=== PATIENT | male | born 1935 | race Caucasian/White ===

== ENCOUNTER 2018-01-17 11:24 | Inpatient (IN) | payer MEDICARE ==
--- NOTE | 2018-01-17 12:02 | ED ---
Complex/Multi-Sys Presentation - HPI Summary HPI Summary: An 82 y/o M presents to ED with c/o RLE pain ongoing for a few weeks and not improving. Pt has had hip replacements on both sides many years ago, and his orthopedist from [place] saw him in the past 1-2 years and told him his hips are fine, the pain is coming from his back. He is not having urinary or bowel incontinence with this episode of pain. He can ambulate with a walker. He lives alone. Alleviating factor: position. Pt has additional complaints of chest congestion for the past month with productive cough. He denies fever, chills. - History Of Current Complaint Chief Complaint: EDGeneral Time Seen by Provider: 01/17/18 11:47 Hx Obtained From: Patient, Family/[employer] - son - Orlin, Medical Records Onset/Duration: Lasting Weeks, Still Present Timing: Constant Severity Currently: Moderate Severity Initially: Moderate Alleviating Factor(s): Position Associated Signs And Symptoms: Positive: Cough, Other - pos: chest congestion; neg: urinary and bowel incontinence; chills. Negative: Fever - Allergies/Home Medications Allergies/Adverse Reactions: Allergies Allergy/AdvReac Type Severity Reaction Status Date / Time erythromycin base Allergy Anaphylatic Verified 01/17/18 11:35 Shock Penicillins Allergy Anaphylatic Verified 01/17/18 11:35 Shock scallops Allergy Anaphylatic Verified 01/17/18 11:35 Shock Home Medications: Home Medications Acetaminophen [Tylenol Extra Strength] 1,000 mg PO Q6H 01/17/18 [History Confirmed 01/17/18] Aspirin 81 mg CHEW TAB* [Aspirin Low Dose TAB*] 81 mg PO DAILY 01/17/18 [ History Confirmed 01/17/18] Carvedilol TAB* [Coreg TAB*] 12.5 mg PO BID 01/17/18 [History Confirmed 01/17/18 ] Lisinopril 40 mg PO DAILY 01/17/18 [History Confirmed 01/17/18] Simvastatin TAB(NF) [Zocor(NF)] 20 mg PO 1700 01/17/18 [History Confirmed ] Vit C/E/Zn/Coppr/Lutein/Zeaxan [Preservision Areds 2 Softgel] 1 each PO DAILY [History Confirmed 01/17/18] Warfarin Sodium 5 mg PO DAILY 01/17/18 [History Confirmed 01/17/18] PMH/Surg Hx/FS Hx/Imm Hx Previously Healthy: No Cardiovascular History: Reports: Hx Myocardial Infarction Musculoskeletal History: Reports: Hx Back Problems, Other Musculoskeletal History - bilat hip replacement Infectious Disease History: Yes Infectious Disease History: Denies: Traveled Outside the [place] in Last 30 Days - Family History Known Family History: Positive: Cardiac Disease - mother, father - [place] - Social History Occupation: Retired Lives: Alone Review of Systems Negative: Fever, Chills Positive: Other - chest congestion Positive: Cough Negative: incontinence - urinary or bowel Positive: Other - RLE pain, back pain All Other Systems Reviewed And Are Negative: Yes Physical Exam - Summary Physical Exam Summary: VITAL SIGNS: Reviewed. GENERAL: Patient is a well-developed and nourished MALE who is lying comfortable in the stretcher. Patient is not in any acute respiratory distress. HEAD AND FACE: No signs of trauma. No ecchymosis, hematomas or skull depressions. No sinus tenderness. EYES: PERRLA, EOMI x 2, No injected conjunctiva, no nystagmus. EARS: Hearing grossly intact. Ear canals and tympanic membranes are within normal limits. MOUTH: Oropharynx within normal limits. NECK: Supple, trachea is midline, no adenopathy, no JVD, no carotid bruit, no c- spine tenderness, neck with full ROM. CHEST: Symmetric, no tenderness at palpation LUNGS: Crackles. CVS: Regular rate and rhythm, S1 and S2 present, no murmurs or gallops appreciated. ABDOMEN: Soft, non-tender. No signs of distention. No rebound, no guarding, and no masses palpated. Bowel sounds are normal. EXTREMITIES: Weakness and decreased sensation in RLE, pedal edema in bilateral LE, no cyanosis or clubbing. NEURO: Alert and oriented x 3. No acute neurological deficits. Speech is normal and follows commands. SKIN: Dry and warm Triage Information Reviewed: Yes Vital Signs On Initial Exam: Initial Vitals Temp Pulse Resp BP Pulse Ox 97.2 F 82 14 118/44 96 01/17/18 11:30 01/17/18 11:30 01/17/18 11:30 01/17/18 11:30 01/17/18 11:30 Vital Signs Reviewed: Yes Diagnostics - Vital Signs Vital Signs Temp Pulse Resp BP Pulse Ox 11/24/18 11:30 97.2 F 82 14 118/44 96 - Laboratory Result Diagrams: 01/17/18 12:25 01/17/18 12:25 Lab Statement: Any lab studies that have been ordered have been reviewed, and results considered in the medical decision making process. - Radiology CXR Radiology Interpretation Completed By: Radiologist Summary of Radiographic Findings: IMPRESSION: No definite pneumonia. Likely atelectasis in the left lung base. ED provider has reviewed this report. - CT L SPINE CT Interpretation Completed By: Radiologist Summary of CT Findings: IMPRESSION: Multilevel degenerative disc disease without fracture. Broad-based protrusions are noted at multiple levels. At L5- S1 degenerative disc disease with broad-based protrusion narrowing both intervertebral foramen. L4-L5 broad-based protrusion flattening the thecal sac. L3-L4 spondylitic ridge with broad-based protrusion flattening the thecal sac. ED provider has reviewed this report. - EKG 1229 Cardiac Rate: NL - 81bpm EKG Rhythm: Sinus Rhythm Summary of EKG Findings: ST elevation in V1-V3 similar to EKG on 03/15/08. - Additional Comments Diagnostic Additional Comments: L-SPINE MRI, as read by radiologist: IMPRESSION: Multilevel degenerative disc disease is noted. At L5-S1 broad-based protrusion flattens the thecal sac. There is right foraminal stenosis noted. At L4-L5 there is broad-based protrusion with narrowing of the right foramen and impinge upon the right exiting nerve root. There is enlargement of the right psoas muscle with multiple fluid collections with fluid levels in several collections in the right psoas muscle. This is suspicious for hematoma although abscess cannot BE excluded. ED provider has reviewed this report. Re-Evaluation - Re-Evaluation 1 Re-Evaluation Time: 17:13 Change: Unchanged Comment: Brief exam shows no hematomas on back, no open wounds. Pt has fallen 4- 5 times in past 2 weeks. Complex Multi-Symp Course/Dx Assessment/Plan: An 82 y/o M presents to ED with c/o RLE pain ongoing for a few weeks and not improving. Pt has had hip replacements on both sides many years ago, and his orthopedist from [place] saw him in the past 1-2 years and told him his hips are fine, the pain is coming from his back. He is not having urinary or bowel incontinence with this episode of pain. He can ambulate with a walker. He lives alone. Alleviating factor: position. Pt has additional complaints of chest congestion for the past month with productive cough. He denies fever, chills. Past medical history significant for hypertension, TIA, coronary artery disease, bilateral hip replacements. Blood work shows WBCs of 12.8, hemoglobin 12.2, hematocrit 37 and platelets 290. BUN is 28 creatinine 1.37, and CRP is 85.1. Chest x-ray impression: No definite pneumonia. Likely atelectasis in the left lung base. Lumbar spine CT IMPRESSION: Multilevel degenerative disc disease without fracture. Broad-based protrusions are noted at multiple levels. At L5-S1 degenerative disc disease with broad-based protrusion narrowing both. intervertebral foramen. L4-L5 broad-based protrusion flattening the thecal sac. L3-L4 spondylitic ridge with broad-based protrusion flattening the thecal sac. In the ED course the patient was given IV fluids, Decadron, and Norflex as well as Rocephin since I believe that the patient has developed pneumonia. I discussed the case with Dr. Henao from neurosurgery and he recommends an MRI of the T-spine and LS-spine. He will consult for this patient. In the ED course the patient had a short run of V. tach and now he is a stable. I discuss my physical exam, findings and test results with Dr. Samayoa from the hospitalist services and he agrees to admit patient to his services. Patient is hemodynamically stable alert and oriented x 3. - Diagnoses Provider Diagnoses: Back pain, PNA (pneumonia), V tach - Physician Notifications Discussed Care Of Patient With: Mark Henao - neuro surgery Time Discussed With Above Provider: 13:11 Instructed by Provider To: Other - Recommends L-spine CT, and if abnormal and pt has continued weakness, recommends MRI of L-spine. Consulted again at 1542: Reviewed CT images together, recommends MRI, will contact him again after additional imaging. Discharge - Sign-Out/Discharge Documenting (check all that apply): Patient Departure - ADMIT - Discharge Plan Condition: Stable Disposition: ADMITTED TO [facility] Referrals: Claudio Ackerman MD [Primary Care Provider] - - Billing Disposition and Condition Condition: STABLE Disposition: Admitted to [facility] - Attestation Statements Document Initiated by Scribe: Yes Documenting Scribe: Elena Brooks Provider For Whom Tico is Documenting (Include Credential): Dr. Mamadou Patino MD Scribe Attestation: I, Elena Brooks, scribed for Dr. Mamadou Patino MD on 01/17/18 at 1850. Scribe Documentation Reviewed: Yes Provider Attestation: The documentation as recorded by the tico, Elena Brooks accurately reflects the service I personally performed and the decisions made by me, Dr. Mamadou Patino MD Consult Consult: 1603: Consult with Dr. Samayoa, hospitalist Will admit pt.
[2018-01-17 12:36] LABS: ABS Basophils 0 10^3/ul (0-0.2); ABS Eosinophils 0 10^3/ul (0-0.6); ABS Lymphocytes 0.9 10^3/ul (1.0-4.8); ABS Monocytes 1.1 10^3/ul (0-0.8); ABS Neutrophils 10.8 10^3/ul (1.5-7.7); ABS Nucleated RBC 0 10^3/ul; Eosinophil % 0.3 % (0-6); Hematocrit 37 % (42-52); Hemoglobin 12.2 g/dl (14.0-18.0); Lymphocyte % 6.7 % (25-47); Mean Corpuscular HGB Conc 33 g/dl (31-36); Mean Corpuscular Hemoglobin 30 pg (27-31); Mean Corpuscular Volume 91 fL (80-94); Mean Platelet Volume 8.8 fL (7.4-10.4); Nucleated Red Blood Cells % 0; Platelet Count 290 10^3/ul (150-450); Red Blood Count 4.03 10^6/ul (4.00-5.40); Red Cell Distribution Width 14 % (10.5-15); White Blood Count 12.8 10^3/ul (3.5-10.8)
[2018-01-17 12:57] LABS: EGFR Non-African American 49.5 (>60)
[2018-01-17] MEDS ORDERED: Dexamethasone IV* 4 MG/ML 1 ML (4 MG) IV SLOW PU ONE (14:34)
[2018-01-17] MEDS ORDERED: NS 0.9% 1000 ML* 1,000 ML IV ONE (14:34)
[2018-01-17] MEDS ORDERED: cefTRIAXone(*) 1 GM in NS 0.9% 50 ML* 50 ML IVPB ONE (15:11)
[2018-01-17] MEDS ORDERED: Morphine VIAL* 4 MG/ML VIAL (1 ml vial) IV PRN (18:55)
[2018-01-17] MEDS ORDERED: Acetaminophen TAB* 325 MG PO PRN (18:57)
[2018-01-17] MEDS ORDERED: oxyCODONE/Acetamin 5/325 MG* TAB PO PRN (18:57)
[2018-01-17] MEDS ORDERED: GuaiFENesin DM* 5 ML UDC PO SCH (19:00)
[2018-01-17 19:17] LABS: INR 4.53 (0.77-1.02)
[2018-01-17] MEDS ORDERED: Phytonadione Oral Solution* 5 MG/25 ML UDC PO STA (19:18)
[2018-01-17 20:00] LABS: Urine Appearance Clear; Urine Blood Negative (Negative); Urine Color Yellow; Urine Ketones Trace (Negative); Urine Protein Negative (Negative); Urine Specific Gravity 1.026 (1.010-1.030); Urine Urobilinogen Positive (Negative)
[2018-01-17] MEDS: Carvedilol TAB* 6.25 MG PO SCH (21:50)
[2018-01-17 22:29] LABS: ABS Basophils 0 10^3/ul (0-0.2); ABS Eosinophils 0 10^3/ul (0-0.6); ABS Lymphocytes 0.5 10^3/ul (1.0-4.8); ABS Monocytes 0.1 10^3/ul (0-0.8); ABS Neutrophils 9.6 10^3/ul (1.5-7.7); ABS Nucleated RBC 0 10^3/ul; Eosinophil % 0 % (0-6); Hematocrit 38 % (42-52); Hemoglobin 12.7 g/dl (14.0-18.0); Lymphocyte % 4.7 % (25-47); Mean Corpuscular HGB Conc 33 g/dl (31-36); Mean Corpuscular Hemoglobin 31 pg (27-31); Mean Corpuscular Volume 93 fL (80-94); Mean Platelet Volume 9.2 fL (7.4-10.4); Nucleated Red Blood Cells % 0.1; Platelet Count 312 10^3/ul (150-450); Red Blood Count 4.12 10^6/ul (4.00-5.40); Red Cell Distribution Width 14 % (10.5-15); White Blood Count 10.2 10^3/ul (3.5-10.8)
--- NOTE | 2018-01-17 22:39 | HP ---
ADMITTING HISTORY AND PHYSICAL: DATE OF ADMISSION: 01/17/18 CHIEF COMPLAINT: Right lower extremity pain and cough for several days within a period of 2 weeks. HISTORY OF PRESENT ILLNESS: The patient is an 82-year-old gentleman with history of hypertension, TIA, and CAD status post CA, who has been in his usual state of health and was last admitted to our facility or to any facility since 2008 where he was admitted for mental status change. As mentioned, he was in his usual state of health until a few weeks, possibly 1 to 2 weeks prior to admission where the patient mentioned that he started to fall, although unable to recall the approximate days. He mentioned that he has been falling at least 4 times for the last 2 weeks. He also about 2 weeks ago started having some cough with semi- yellowish phlegm for 2 weeks, but was not having any fevers, chills, or shortness of breath. He mentioned that since his first fall for a few weeks, he has been having some right lower extremity pain and weakness. Persistence of his signs and symptoms and his decreased activity and quality of life because of the above symptoms along with his cough led to his presentation to the ED for further evaluation, at which point the ER physician spoke with Neurosurgery on-call, who then suggested that an MRI of the lumbar spine be done. A lumbar CT was initially done, which showed multilevel degenerative disk disease without fracture, broad- based protrusions are noted at multiple levels; however, the MRI of the lumbar spine while confirming multilevel degenerative disk disease also noted an enlargement of the right psoas muscle with multiple fluid collections with fluid levels in several collections in the right psoas muscle, which is suspicious for hematoma, although abscess cannot be totally excluded. In the ED, he has received 1 L bolus, Rocephin 1 g IV as well as dexamethasone 8 mg IV. The patient also denied any history of syncopal episode, loss of consciousness, chest pain, or shortness of breath prior to, during, or after his multiple falls. PAST MEDICAL AND SURGICAL HISTORY: Hypertension, TIA, CAD. The patient's last cardiac catheterization was in 2005 which showed 100% occlusion of the LAD, 50% of the RCA, and 20% of the distal left main and an EF of 25%. History of cataract surgery and early macular degeneration, status post hip replacement bilateral and status post tonsillectomy and adenoidectomy. MEDICATIONS: Home medications are as follows: 1. Aspirin 81 mg p.o. daily. 2. Tylenol 1000 mg p.o. q.6 p.r.n. 3. PreserVision 1 softgel p.o. daily. 4. Simvastatin 20 mg p.o. daily. 5. Lisinopril 40 mg p.o. daily. 6. Carvedilol 12.5 mg p.o. b.i.d. 7. Warfarin 5 mg p.o. daily. ALLERGIES: PENICILLIN and ERYTHROMYCIN as well as SCALLOPS. SOCIAL HISTORY: The patient denies any history of tobacco, alcohol, or drug abuse. 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 He lives alone at home. His back in 2010. REVIEW OF SYSTEMS: The patient complains of right lower extremity pain as well as right rib pain. Other than this, he denied any headaches, dizziness, fevers , chills, nausea, vomiting, shortness of breath. Denied any abdominal pain, diarrhea, constipation, myalgias, arthralgias, throat pain, or new skin lesions. The rest of the 14-point review of systems are otherwise unremarkable. PHYSICAL EXAMINATION GENERAL APPEARANCE: The patient is awake, alert, and oriented x3, not in acute distress. VITAL SIGNS: Shows the most recent vital signs of records with blood pressure of 127/56, 82 beats per minute heart rate, 15 per minute respiratory rate, saturating at 90% on room air. HEENT: Normocephalic, atraumatic. PERRLA. Extraocular muscles intact. Negative for icterus. Moist oral mucosa. Negative throat erythema. NECK: Soft, supple with no cervical lymphadenopathy. No JVD. CHEST: Clear to auscultation bilaterally. Good air entry. No wheezes, rales, or rhonchi. HEART: S1, S2 within normal limits. Regular rate and rhythm. No murmurs, rubs , or gallops. ABDOMEN: Soft, nondistended, nontender. Normoactive bowel sounds x4 quadrants. EXTREMITIES: No cyanosis, clubbing with 1+ bilateral lower extremity edema. PSYCHIATRIC: No active psychosis, depression, suicidal or homicidal ideations. DIAGNOSTIC STUDIES/LAB DATA: Most recent and pertinent laboratories drawn show CBC with a mildly elevated WBC of 12.8, H and H of 12.2 and 37, platelets of 290,000. PTT is 47. INR is still pending. Sodium and potassium were found to be normal. BUN and creatinine is 28 and 1.37 respectively. Troponin is normal. BNP is normal. LFTs were found to be normal. EKG shows sinus rhythm with a QTc of 457. He does have chronically elevated ST segment changes in leads V1, V2, and V3 and when compared to a previous EKG dated 03/15/08, there were no changes in these leads as well as any other leads. ASSESSMENT AND PLAN: The patient is an 82-year-old gentleman with history of hypertension, transient ischemic attack, and coronary artery disease , being admitted after sustaining multiple falls leading to right lower extremity pain and weakness for a few weeks leading to the patient sustaining a right psoas hematoma. 1. Hematoma of the right psoas, likely secondary to multiple falls. The patient does have history of coronary artery disease. We will hold aspirin at this point. I am unclear as to why he is on Coumadin given he did not mention atrial fibrillation or any other arrhythmias or deep venous thrombosis or venous thromboembolism in his history, but we will hold off Coumadin as well until we get the reports of his INR and especially in the setting of hematoma, I would hold this at this time. He does have some lower extremity edema, which will be discussed below that I believe to be due to him sitting more than he is lying down given lying supine makes his right leg and hip more painful and hence , tries to avoid this and usually just sits at home during the past few weeks and thus could be just dependent edema. Unlikely that he does have any clots in the bilateral lower extremities given he is also on Coumadin, but unclear whether it is therapeutic or not. As mentioned, INR is pending at this time. 2. Frequent falls. I do not believe that he has any infection nor do I believe he has pneumonia. His chest x-ray did not have any difference from previous, as well as the patient did not have any signs of consolidation nor was he complaining of fevers, chills, nor shortness of breath. He does complain of some rib pain, which will be discussed below. 3. History of coronary artery disease. As mentioned, we will hold aspirin as well as Coumadin. I will continue with simvastatin, lisinopril, and carvedilol. 4. Bilateral lower extremity edema. Please see discussion above for Doppler ultrasound in a.m. 5. History of early macular degeneration. Continue PreserVision. 6. Cough, likely secondary to viral bronchitis. I will hold off antibiotics at this point and instead will place him on Robitussin DM q.8 hours for the next 3 days, then as p.r.n. 7. DVT prophylaxis. As mentioned, the patient is on warfarin due to unclear reasons. We will defer clarification in a.m. We will hold this for now given for one, we do not know his INR at this time, as well as due to the question of hematoma of the right psoas. 8. Leukocytosis, likely reactive given lack of fever nor other symptoms that would be consistent with infection, although he might have viral bronchitis as discussed, which does not require antibiotics. I believe his leukocytosis is more due to a reactive cause due to his pain and frequent falls rather than a harbinger of infection. In any case, the patient has been cultured and we will continue to watch and observe the patient. The patient did receive 1 g of Rocephin in the ED. 9. Disposition for a PT eval for frequent falls. [id number]/[facility] #: [id number] MTDD
[2018-01-18] MEDS: GuaiFENesin DM* 5 ML UDC PO SCH ×3 (05:34→20:57)
[2018-01-18 05:35] LABS: ABS Basophils 0.1 10^3/ul (0-0.2); ABS Eosinophils 0 10^3/ul (0-0.6); ABS Lymphocytes 0.7 10^3/ul (1.0-4.8); ABS Monocytes 0.5 10^3/ul (0-0.8); ABS Neutrophils 8.5 10^3/ul (1.5-7.7); ABS Nucleated RBC 0 10^3/ul; Eosinophil % 0.1 % (0-6); Hematocrit 33 % (42-52); Lymphocyte % 7.1 % (25-47); Mean Corpuscular HGB Conc 33 g/dl (31-36); Mean Corpuscular Hemoglobin 31 pg (27-31); Mean Corpuscular Volume 92 fL (80-94); Mean Platelet Volume 9.2 fL (7.4-10.4); Nucleated Red Blood Cells % 0; Platelet Count 254 10^3/ul (150-450); Red Blood Count 3.59 10^6/ul (4.00-5.40); Red Cell Distribution Width 14 % (10.5-15); White Blood Count 9.9 10^3/ul (3.5-10.8)
[2018-01-18 05:52] LABS: EGFR Non-African American 54.5 (>60)
[2018-01-18] MEDS: Lisinopril TAB* 10 MG PO SCH (08:55)
[2018-01-18] MEDS: Carvedilol TAB* 6.25 MG PO SCH ×2 (08:55→20:10)
[2018-01-18] MEDS: PRESERVISION AREDS PO SCH (08:56)
--- NOTE | 2018-01-18 16:00 | PN ---
Subjective Date of Service: 01/18/18 Interval History: Pt is feeling ok. He states he does not have much pain just at rest but if he coughs he feels pain in his back, more on the R side. He has walked to the bathroom today but not out in the alejo. He has been coughing some but not really brining up anything. Objective Active Medications: Acetaminophen (Tylenol Tab*) 650 mg PO Q6H PRN PRN Reason: PAIN Last Admin: 01/18/18 05:38 Dose: 650 mg Atorvastatin Calcium (Lipitor*) 10 mg PO 1700 [facility] Carvedilol (Coreg Tab*) 12.5 mg PO BID [facility] Last Admin: 01/18/18 08:55 Dose: 12.5 mg Guaifenesin/Dextromethorphan (Robitussin Dm*) 10 ml PO 0600,1400,2200 [facility] Stop: 01/20/18 21:59 Last Admin: 01/18/18 13:14 Dose: 10 ml Lisinopril (Prinivil Tab*) 40 mg PO DAILY [facility] Last Admin: 01/18/18 08:55 Dose: 40 mg Morphine Sulfate (Morphine Vial*) 0.5 mg IV Q6H PRN PRN Reason: Breakthrough pain Preservision Areds 2 (Softgel) 1 each PO DAILY [facility] Last Admin: 01/18/18 08:56 Dose: Not Given Oxycodone/Acetaminophen (Percocet 5/325 Tab*) 1 tab PO Q6H PRN PRN Reason: PAIN Vital Signs - 8 hr 01/18/18 01/18/18 07:56 08:00 Temperature 97.8 F Pulse Rate 72 Respiratory 18 17 Rate Blood Pressure 125/57 (mmHg) O2 Sat by Pulse 97 Oximetry Oxygen Devices in Use Now: Nasal Cannula Appearance: Elderly male sitting up in bed, NAD Eyes: No Scleral Icterus Ears/Nose/Mouth/Throat: Mucous Membranes Moist Respiratory: Symmetrical Chest Expansion and Respiratory Effort, Clear to Auscultation, - - Pt with frequent moist cough Cardiovascular: NL Sounds; No Murmurs; No JVD, RRR, - - 1+ ankle edema Abdominal: NL Sounds; No Tenderness; No Distention Extremities: No Clubbing, Cyanosis Skin: No Nodules or Sclerosis Neurological: Alert and Oriented x 3 Result Diagrams: 01/18/18 05:05 01/18/18 05:05 Microbiology and Other Data: Microbiology 01/17/18 12:43 Aerobic Blood Culture - Preliminary Blood Venous No Growth Day 1 Anaerobic Blood Culture - Preliminary No Growth Day 1 01/17/18 12:25 Aerobic Blood Culture - Preliminary Blood Venous No Growth Day 1 Anaerobic Blood Culture - Preliminary No Growth Day 1 Assess/Plan/Problems-Billing Mr Mercedes is an 82 yo M who has a h/o past CVA for which he is on coumadin and CAD who presented to the ER with c/o R LE pain and cough and was found to have a R psoas hematoma. - Patient Problems (1) Psoas hematoma, right, secondary to anticoagulant therapy Current Visit: Yes Status: Acute Code(s): S30.1XXA - CONTUSION OF ABDOMINAL WALL, INITIAL ENCOUNTER SNOMED Code(s): 175893226 Comment: Likely related to falls and being on coumadin. Likely his back and R leg pain is secondary to the hematoma. Continue PT and pain management. Will get repeat INR and CBC tomorrow. Pt's H/H has drifted down since admission. I would like the pt re-evaluated by PT prior to d/c home as they recommend skilled PT services. (2) Bronchitis Current Visit: Yes Status: Acute Code(s): J40 - BRONCHITIS, NOT SPECIFIED ACUTE OR CHRONIC SNOMED Code(s): 91886791 Comment: Pt with likely viral bronchitis. Continue conservative treatment. (3) Falls Current Visit: Yes Status: Acute Comment: Pt's son reports falls are secondary to slipping on the hardwood floor. He does not loose balance and has not been falling beyond just a couple weeks ago. His son states he got non-slip mats to place at points where he needs to go from seated to standing which has helped the falls completely. (4) CAD (coronary artery disease) Current Visit: Yes Status: Acute Code(s): I25.10 - ATHSCL HEART DISEASE OF [place] CORONARY ARTERY W/O ANG PCTRS SNOMED Code(s): 35365649 Comment: Continue lipitor, coreg and lisinopril. No c/o chest pain. (5) H/O: CVA (cerebrovascular accident) Current Visit: Yes Status: Acute Code(s): Z86.73 - PRSNL HX OF TIA (TIA), AND CEREB INFRC W/O RESID DEFICITS SNOMED Code(s): 428079189 Comment: Was on coumadin for h/o CVA. Coumadin now on hold for at least a couple weeks. (6) DVT prophylaxis Current Visit: Yes Status: Acute Code(s): EXG2182 - SNOMED Code(s): 236425701 Comment: SCDs/ambulation (7) Full code status Current Visit: Yes Status: Acute Code(s): Z78.9 - OTHER SPECIFIED HEALTH STATUS SNOMED Code(s): 774137440
[2018-01-18] MEDS ORDERED: Atorvastatin* 10 MG TAB PO SCH (17:00)
[2018-01-19] MEDS: GuaiFENesin DM* 5 ML UDC PO SCH (05:24)
[2018-01-19 06:09] LABS: Hematocrit 31 % (42-52); Hemoglobin 10.5 g/dl (14.0-18.0); Mean Corpuscular HGB Conc 34 g/dl (31-36); Mean Corpuscular Hemoglobin 31 pg (27-31); Mean Corpuscular Volume 92 fL (80-94); Platelet Count 278 10^3/ul (150-450); Red Blood Count 3.37 10^6/ul (4.00-5.40); Red Cell Distribution Width 15 % (10.5-15); White Blood Count 8.3 10^3/ul (3.5-10.8)
[2018-01-19 06:33] LABS: INR 1.18 (0.77-1.02)
[2018-01-19] MEDS: PRESERVISION AREDS PO SCH (08:25)
[2018-01-19] MEDS: Carvedilol TAB* 6.25 MG PO SCH (08:31)
[2018-01-19] MEDS: Lisinopril TAB* 10 MG PO SCH (08:31)
[2018-01-19 12:25] VITALS: BP 115/59
--- NOTE | 2018-01-20 04:48 | DS ---
CC: Dr. Ackerman * DISCHARGE SUMMARY: DATE OF ADMISSION: 01/17/18 DATE OF DISCHARGE: 01/19/18 PRIMARY CARE PROVIDER: Dr. Ackerman. PRINCIPAL DIAGNOSES: 1. Right psoas hematoma. 2. Recurrent falls. 3. Bronchitis. SECONDARY DIAGNOSES: 1. History of cerebrovascular disease. 2. Hypertension. 3. Coronary artery disease. DISCHARGE MEDICATIONS: 1. Lisinopril 40 mg p.o. daily. 2. Coreg 12.5 mg p.o. b.i.d. 3. Simvastatin 20 mg p.o. daily. 4. PreserVision AREDS 2 one cap p.o. daily. 5. Tylenol Extra Strength 1000 mg p.o. q.6 hours p.r.n. pain. 6. Aspirin 81 mg p.o. daily, to be started on 01/26/18. 7. Tramadol 50 mg p.o. q.8 hours p.r.n. pain, dispensed 15 tablets. MEDICATIONS ON HOLD: Coumadin. HOSPITAL COURSE: Mr. 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 This was identified on MRI. The patient's INR was supratherapeutic at 4.53 on presentation. His Coumadin has been held and on the day of discharge, his INR is 1.18. The patient has been instructed to hold his Coumadin until it is okay to be restarted by his PCP. Additionally, the patient will hold his aspirin until 01/26/18. The patient worked with Physical Therapy and did quite well. On the day of discharge, the patient was able to ambulate around the entire unit without any concerning issues. It is recommended that the patient be referred to outpatient PT to work on strengthening and endurance. The patient did develop mild acute blood loss anemia from the psoas hematoma. His hemoglobin drifted from 12.2 down to 10.5 during the course of hospitalization. I have requested that the patient have a followup CBC obtained on 01/23/18. PHYSICAL EXAMINATION: On the day of discharge, the patient is awake, alert, oriented, sitting up in a chair, eating lunch, in no acute distress. His cardiac exam reveals normal S1, S2 with a regular rate and rhythm. His lungs are clear. His abdomen is soft, nontender, nondistended. His vital signs are stable with a blood pressure of 115/59, pulse was 77, respiratory rate of 16, and a temp of 97.5. At this point, the patient is felt to be stable for discharge home. FOLLOWUP CONCERNS: The patient is being discharged home today, 01/19/18. ACTIVITY LEVEL: As tolerated. DIET: Heart healthy. CONDITION ON DISCHARGE: Stable. DISCHARGE INSTRUCTIONS: The patient has been instructed to follow up with Dr. Ackerman in the next 4 to 7 days. TIME SPENT: 35 minutes were spent discharging this patient. [id number] #: [id number] MTDD
== END 2018-01-19 13:20 | disposition home or self-care (01) | DRG 605 ==
LOC: ED 11:24 → MEDTELE 18:49
PROVIDERS: ADMIT Student in an Organized Health Care Education/Training Program; ATTEND Hospitalist
DX: S70.11XA Contusion of right thigh, initial encounter (principal); I47.2 Ventricular tachycardia; D62 Acute posthemorrhagic anemia; D68.32 Hemorrhagic disorder due to extrinsic circulating anticoagulants; M79.81 Nontraumatic hematoma of soft tissue; I25.2 Old myocardial infarction; M51.37 Other intervertebral disc degeneration, lumbosacral region; H35.30 Unspecified macular degeneration; R29.6 Repeated falls; I10 Essential (primary) hypertension; Z86.73 Personal history of transient ischemic attack (TIA), and cerebral infarction without residual deficits; I25.10 Atherosclerotic heart disease of native coronary artery without angina pectoris; Z98.49 Cataract extraction status, unspecified eye; W19.XXXA Unspecified fall, initial encounter; T45.515A Adverse effect of anticoagulants, initial encounter; J40 Bronchitis, not specified as acute or chronic; M47.9 Spondylosis, unspecified; Z96.643 Presence of artificial hip joint, bilateral; Z88.1 Allergy status to other antibiotic agents; Z88.0 Allergy status to penicillin; Z91.013 Allergy to seafood; Z86.19 Personal history of other infectious and parasitic diseases; Z82.49 Family history of ischemic heart disease and other diseases of the circulatory system; Z91.81 History of falling; Z79.899 Other long term (current) drug therapy; Y92.009 Unspecified place in unspecified non-institutional (private) residence as the place of occurrence of the external cause
CPT/HCPCS: 36415; 71046; 72131; 72148; 80053; 81003; 82550; 82553; 83605; 83735; 83880; 84100; 84484; 85025; 85027; 85610; 85730; 86140; 87040; 93005; 93970; 99285; A9270-GY; G8978-GP-CJ; G8979-GP-CI; J0696; J1100

== ENCOUNTER 2023-01-23 20:11 | Inpatient (IN) ==
[~2023-01-23 20:11] MED LIST: Iodixanol 320 (CONTRAST) 100 ML SDV IV ONE
[2023-01-23] MEDS ORDERED: Lactated Ringers 1000 ml BAG 1,000 ML IV ONE (21:23)
[2023-01-23 21:44] LABS: INR 1.55 (0.83-1.13)
[2023-01-23 21:46] LABS: ABS Lymphocytes 0.8 10^3/uL (1.0-4.8); ABS Monocytes 0.7 10^3/uL (0.0-1.1); ABS Neutrophils 8.8 10^3/uL (1.5-7.6); ABS Nucleated RBC 0.03 10^3/ul; Hematocrit 48.4 % (38-53); Hemoglobin 16.3 g/dL (13.2-16.3); Lymphocyte % 7.5 %; Mean Corpuscular Hemoglobin 31.8 pg (27-33); Mean Corpuscular Hgb Conc 33.7 g/dL (31-36); Mean Corpuscular Volume 94.5 fL (80-97); Mean Platelet Volume 9.6 fL (7.5-11.2); Nucleated Red Blood Cells % 0.3 %/100WBC (0.0-0.8); Platelet Count 164 10^3/uL (150-450); Red Blood Count 5.12 10^6/uL (4.06-5.63); Red Cell Distribution Width 13.7 % (12-17); White Blood Count 10.3 10^3/uL (3.6-10.2)
[2023-01-23 22:06] LABS: Albumin 3.9 g/dL (3.2-5.2); Albumin/Globulin Ratio 1.5 (1-3); Calcium 9.5 mg/dL (8.6-10.3); Creatinine, Serum 1.62 mg/dL (0.67-1.17); Globulin 2.6 g/dL (2-4); Potassium 3.8 mmol/L (3.5-5.0); Total Bilirubin 1.5 mg/dL (0.2-1.0); Total Protein 6.5 g/dL (6.4-8.9); eGFR CKD-EPI 40.3 (>60)
[2023-01-23 23:33] LABS: High Sensitivity Troponin 1 Hr 938 pg/mL (<20)
[2023-01-24] MEDS ORDERED: Lactated Ringers 1000 ml BAG 1,000 ML IV SCH (01:00)
[2023-01-24 02:23] LABS: Magnesium 1.9 mg/dL (1.9-2.7); Phosphorus 3.1 mg/dL (2.5-5.0)
[2023-01-24] MEDS ORDERED: Magnesium Sulfate 2 gm BAG 2 GM/50 ML BAG IVPB ONE (02:49)
[2023-01-24] MEDS ORDERED: Remdesivir 100 mg Vial 200 MG in NS 0.9% 250 ml 210 ML IV ONE (04:04)
[2023-01-24 06:35] LABS: INR 1.51 (0.83-1.13)
[2023-01-24 06:41] LABS: ABS Lymphocytes 0.8 10^3/uL (1.0-4.8); ABS Monocytes 0.8 10^3/uL (0.0-1.1); ABS Neutrophils 7.4 10^3/uL (1.5-7.6); ABS Nucleated RBC 0.02 10^3/ul; Eosinophil % 0.1 %; Hematocrit 43.8 % (38-53); Hemoglobin 14.9 g/dL (13.2-16.3); Lymphocyte % 8.6 %; Mean Corpuscular Volume 93.9 fL (80-97); Nucleated Red Blood Cells % 0.2 %/100WBC (0.0-0.8); Platelet Count 140 10^3/uL (150-450); Red Blood Count 4.66 10^6/uL (4.06-5.63); Red Cell Distribution Width 13.8 % (12-17); White Blood Count 9.1 10^3/uL (3.6-10.2)
[2023-01-24 07:05] LABS: Calcium 8.7 mg/dL (8.6-10.3); Creatinine, Serum 1.45 mg/dL (0.67-1.17); Potassium 4.2 mmol/L (3.5-5.0); eGFR CKD-EPI 46.1 (>60)
[2023-01-24 07:31] LABS: Magnesium 2.6 mg/dL (1.9-2.7); Phosphorus 4.1 mg/dL (2.5-5.0)
[2023-01-24] MEDS ORDERED: Sulfur Hexaflouride MICROSPHR 25 MG VIAL ONE (07:51)
[2023-01-24 08:43] LABS: Urine Appearance Cloudy; Urine Bilirubin Negative (Negative); Urine Blood Negative (Negative); Urine Color Yellow; Urine Glucose 3+(>=500 mg/dL) (Negative); Urine Ketones Negative (Negative); Urine Nitrite Negative (Negative); Urine Protein 1+(30 mg/dL) (Negative); Urine Urobilinogen Negative (Negative)
[2023-01-24 08:58] LABS: Urine Bacteria Absent (Absent); Urine Granular Casts Present (Absent); Urine Red Blood Cell 3+(>10/hpf) (Absent); Urine White Blood Cell Trace(0-5/hpf) (Absent)
[2023-01-24] MEDS ORDERED: Heparin 5000 UNITS/ML 1 mL VIAL SUBCUT SCH (09:00)
[2023-01-24] MEDS: Enoxaparin 100 MG/ML SYR SUBCUT SCH (18:06)
[2023-01-24] MEDS: Warfarin DAILY REMINDER **NOTE FOLLOW UP SCH (20:01)
[2023-01-24] MEDS: Warfarin per PHARMACY **NOTE FOLLOW UP SCH (20:02)
[2023-01-25] MEDS: Enoxaparin 100 MG/ML SYR SUBCUT SCH ×2 (06:07→18:06)
[2023-01-25 07:10] LABS: ABS Lymphocytes 0.7 10^3/uL (1.0-4.8); ABS Monocytes 0.7 10^3/uL (0.0-1.1); ABS Neutrophils 7.5 10^3/uL (1.5-7.6); ABS Nucleated RBC 0.01 10^3/ul; Hematocrit 41.9 % (38-53); Lymphocyte % 7.8 %; Mean Corpuscular Hemoglobin 31.5 pg (27-33); Mean Corpuscular Hgb Conc 33.4 g/dL (31-36); Mean Corpuscular Volume 94.2 fL (80-97); Nucleated Red Blood Cells % 0.1 %/100WBC (0.0-0.8); Platelet Count 128 10^3/uL (150-450); Red Blood Count 4.44 10^6/uL (4.06-5.63); Red Cell Distribution Width 13.9 % (12-17); White Blood Count 8.9 10^3/uL (3.6-10.2)
[2023-01-25 07:16] LABS: INR 1.41 (0.83-1.13)
[2023-01-25 07:23] LABS: Calcium 8.3 mg/dL (8.6-10.3); Creatinine, Serum 1.17 mg/dL (0.67-1.17); Magnesium 2.2 mg/dL (1.9-2.7); Phosphorus 3.1 mg/dL (2.5-5.0); Potassium 4.5 mmol/L (3.5-5.0); eGFR CKD-EPI 59.6 (>60)
[2023-01-25] MEDS ORDERED: Remdesivir 100 mg Vial 100 MG in NS 0.9% 250 ml 230 ML IV SCH (09:00)
[2023-01-25 09:17] LABS: Albumin 3.2 g/dL (3.2-5.2); Albumin/Globulin Ratio 1.5 (1-3); Direct Bilirubin 0.2 mg/dL (0.03-0.18); Globulin 2.2 g/dL (2-4); Indirect Bilirubin 0.7 mg/dL (0.3-1.0); Total Bilirubin 0.9 mg/dL (0.2-1.0); Total Protein 5.4 g/dL (6.4-8.9)
[2023-01-25] MEDS: Warfarin DAILY REMINDER **NOTE FOLLOW UP SCH (18:08)
[2023-01-26] MEDS: Enoxaparin 100 MG/ML SYR SUBCUT SCH ×2 (05:27→17:10)
[2023-01-26 07:10] LABS: INR 1.87 (0.83-1.13)
[2023-01-26 07:22] LABS: ABS Lymphocytes 0.7 10^3/uL (1.0-4.8); ABS Monocytes 0.7 10^3/uL (0.0-1.1); ABS Nucleated RBC 0.01 10^3/ul; Hematocrit 41.3 % (38-53); Hemoglobin 14.1 g/dL (13.2-16.3); Lymphocyte % 7.1 %; Mean Corpuscular Hgb Conc 34.1 g/dL (31-36); Mean Corpuscular Volume 93.8 fL (80-97); Nucleated Red Blood Cells % 0.2 %/100WBC (0.0-0.8); Platelet Count 144 10^3/uL (150-450); Red Blood Count 4.41 10^6/uL (4.06-5.63); Red Cell Distribution Width 13.9 % (12-17); White Blood Count 9.4 10^3/uL (3.6-10.2)
[2023-01-26 07:31] LABS: Calcium 8.4 mg/dL (8.6-10.3); Creatinine, Serum 1.08 mg/dL (0.67-1.17); Potassium 4.4 mmol/L (3.5-5.0); eGFR CKD-EPI 65.6 (>60)
[2023-01-26] MEDS: Warfarin per PHARMACY **NOTE FOLLOW UP SCH ×2 (08:35→17:11)
[2023-01-26] MEDS: Nystatin TOP POWDER 15 GM BTL TOPICAL SCH ×2 (12:20→21:37)
[2023-01-26] MEDS: Psyllium PAK PO SCH (17:10)
[2023-01-26] MEDS: Warfarin DAILY REMINDER **NOTE FOLLOW UP SCH (21:35)
[2023-01-27] MEDS: Enoxaparin 100 MG/ML SYR SUBCUT SCH ×2 (05:27→17:10)
[2023-01-27 07:11] LABS: ABS Lymphocytes 0.6 10^3/uL (1.0-4.8); ABS Neutrophils 7.7 10^3/uL (1.5-7.6); Hematocrit 42.8 % (38-53); Hemoglobin 14.4 g/dL (13.2-16.3); Lymphocyte % 6.7 %; Mean Corpuscular Hemoglobin 31.6 pg (27-33); Mean Corpuscular Hgb Conc 33.7 g/dL (31-36); Mean Corpuscular Volume 93.7 fL (80-97); Mean Platelet Volume 9.9 fL (7.5-11.2); Platelet Count 157 10^3/uL (150-450); Red Blood Count 4.57 10^6/uL (4.06-5.63); Red Cell Distribution Width 13.8 % (12-17); White Blood Count 9.3 10^3/uL (3.6-10.2)
[2023-01-27 07:18] LABS: INR 2.64 (0.83-1.13)
[2023-01-27 07:28] LABS: Calcium 8.6 mg/dL (8.6-10.3); Creatinine, Serum 1.21 mg/dL (0.67-1.17); Magnesium 1.9 mg/dL (1.9-2.7); Phosphorus 3.1 mg/dL (2.5-5.0); Potassium 4.4 mmol/L (3.5-5.0); eGFR CKD-EPI 57.2 (>60)
[2023-01-27] MEDS: Psyllium PAK PO SCH (09:28)
[2023-01-27] MEDS: Nystatin TOP POWDER 15 GM BTL TOPICAL SCH ×2 (09:29→22:20)
[2023-01-27] MEDS ORDERED: Remdesivir 100 mg Vial 100 MG in NS 0.9% 250 ml 230 ML IV SCH (10:30)
[2023-01-27] MEDS: Remdesivir 100 mg Vial 100 MG in NS 0.9% 250 ml 230 ML IV SCH (11:58)
[2023-01-27] MEDS ORDERED: Senna TAB 8.6 mg TAB PO PRN (15:20)
[2023-01-27] MEDS ORDERED: Magnesium Hydroxide LIQ 30 ML UDC PO PRN (15:20)
[2023-01-27] MEDS: Warfarin DAILY REMINDER **NOTE FOLLOW UP SCH (17:11)
[2023-01-27] MEDS: Warfarin per PHARMACY **NOTE FOLLOW UP SCH (17:11)
[2023-01-27] MEDS: Magnesium Hydroxide LIQ 30 ML UDC PO SCH (22:19)
[2023-01-27] MEDS: Polyethylene Glycol 3350 17 GM PACKET PO SCH (22:19)
[2023-01-28] MEDS: Norepinephrine 4 MG/250mL D5W 4,000 MCG/250 ML BAG IV SCH ×4 (01:50→08:09)
[2023-01-28 02:16] LABS: Hematocrit 34.5 % (38-53); Hemoglobin 11.7 g/dL (13.2-16.3); Mean Corpuscular Hemoglobin 31.9 pg (27-33); Mean Corpuscular Hgb Conc 33.9 g/dL (31-36); Mean Corpuscular Volume 93.9 fL (80-97); Mean Platelet Volume 10.1 fL (7.5-11.2); Platelet Count 218 10^3/uL (150-450); Red Blood Count 3.67 10^6/uL (4.06-5.63); Red Cell Distribution Width 13.9 % (12-17); White Blood Count 14.3 10^3/uL (3.6-10.2)
[2023-01-28] MEDS ORDERED: cefTRIAXone 1 gm/50 mL D5W 1 GM/50 ML BAG IV SCH (02:30)
[2023-01-28 02:41] LABS: Albumin/Globulin Ratio 1.5 (1-3); C Reactive Protein 14.02 mg/L (<8.01); Calcium 8.2 mg/dL (8.6-10.3); Creatinine, Serum 1.68 mg/dL (0.67-1.17); Total Bilirubin 1.3 mg/dL (0.2-1.0); eGFR CKD-EPI 38.6 (>60)
[2023-01-28] MEDS: Phenylephrine DRIP 0.2 MG/ML in NS 0.9% 250 ML (PHA mix) IV SCH ×2 (02:45→07:38)
[2023-01-28] MEDS ORDERED: PHENYLEPHRINE DRIP IVPREMIX 50 MG/250 ML BAG IV SCH (03:00)
[2023-01-28] MEDS ORDERED: cefTRIAXone 1 GM Q24H (ADVAN) IVPB SCH (03:00)
[2023-01-28 03:46] LABS: Urine Appearance Cloudy; Urine Bilirubin Negative (Negative); Urine Blood 1+ (Negative); Urine Color Yellow; Urine Glucose 3+(>=500 mg/dL) (Negative); Urine Ketones Negative (Negative); Urine Nitrite Positive (Negative); Urine Protein Negative (Negative); Urine Specific Gravity 1.023 (1.002-1.030); Urine Urobilinogen Negative (Negative)
[2023-01-28] MEDS ORDERED: Vancomycin per Pharmacy 1 EA NOTE FOLLOW UP PRN (04:17)
[2023-01-28] MEDS ORDERED: Vancomycin 1,250 MG in NS 0.9% 250 ml 250 ML IVPB ONE (04:30)
[2023-01-28 04:37] LABS: ABS Basophils 0.1 10^3/uL (0.0-0.1); ABS Lymphocytes 0.8 10^3/uL (1.0-4.8); ABS Monocytes 1.2 10^3/uL (0.0-1.1); ABS Neutrophils 12.2 10^3/uL (1.5-7.6); ABS Nucleated RBC 0.02 10^3/ul; Lymphocyte % 5.9 %; Nucleated Red Blood Cells % 0.1 %/100WBC (0.0-0.8); RBC Morphology Normal (Normal)
[2023-01-28 04:50] LABS: Urine Bacteria 1+ (Absent); Urine Red Blood Cell 1+(3-5/hpf) (Absent); Urine Squamous Epithelial Cell Present (Absent); Urine White Blood Cell 3+(>20/hpf) (Absent)
[2023-01-28] MEDS ORDERED: 1/2 NS IV ONE (05:00)
[2023-01-28] MEDS ORDERED: Vancomycin 1,000 MG in NS 0.9% 250 ml 250 ML IVPB SCH (05:00)
[2023-01-28] MEDS ORDERED: D5W IV ONE (05:00)
[2023-01-28] MEDS ORDERED: VASOPRESSIN IVPREMIX BTL 40 UNIT/100 ML BTL IV SCH (05:15)
[2023-01-28] MEDS ORDERED: Vasopressin 100 UNITS in D5W 250 ml BAG 245 ML IV SCH (05:15)
[2023-01-28 05:35] LABS: PCO2 Arterial 25 mmHg (35-45); PO2 Arterial 165 mmHg (80-100)
[2023-01-28] MEDS ORDERED: Norepinephrine 4 MG/250mL D5W 4,000 MCG/250 ML BAG IV SCH (06:10)
[2023-01-28 07:12] VITALS: BP 64/40
[2023-01-28 07:31] LABS: Hematocrit 31.1 % (38-53); Hemoglobin 10.4 g/dL (13.2-16.3); Mean Corpuscular Hemoglobin 32.3 pg (27-33); Mean Corpuscular Hgb Conc 33.5 g/dL (31-36); Mean Corpuscular Volume 96.3 fL (80-97); Mean Platelet Volume 10.6 fL (7.5-11.2); Platelet Count 184 10^3/uL (150-450); Red Blood Count 3.23 10^6/uL (4.06-5.63); Red Cell Distribution Width 14.2 % (12-17); White Blood Count 10.2 10^3/uL (3.6-10.2)
[2023-01-28 07:35] LABS: ABS Lymphocytes 0.9 10^3/uL (1.0-4.8); ABS Monocytes 0.1 10^3/uL (0.0-1.1); ABS Neutrophils 9.1 10^3/uL (1.5-7.6); ABS Nucleated RBC 0.05 10^3/ul; Eosinophil % 0.1 %; Nucleated Red Blood Cells % 0.5 %/100WBC (0.0-0.8)
[2023-01-28] MEDS: Polyethylene Glycol 3350 17 GM PACKET PO SCH (07:40)
[2023-01-28] MEDS: Psyllium PAK PO SCH (07:41)
[2023-01-28] MEDS: Magnesium Hydroxide LIQ 30 ML UDC PO SCH (07:41)
[2023-01-28] MEDS: Nystatin TOP POWDER 15 GM BTL TOPICAL SCH (07:41)
[2023-01-28 07:43] LABS: INR 4.53 (0.83-1.13)
[2023-01-28] MEDS: Enoxaparin 100 MG/ML SYR SUBCUT SCH (08:28)
[2023-01-28] MEDS ORDERED: Norepinephrine *QUAD STRENGTH* 16 mg/250 mL NS (ICU ONLY) IV SCH (08:30)
[2023-01-28] MEDS ORDERED: Dextrose 50% Syringe 50 ml 25 GM/50 ML SYRINGE IV PUSH PRN (08:31)
[2023-01-28 08:42] LABS: Calcium 7.8 mg/dL (8.6-10.3); Creatinine, Serum 2.1 mg/dL (0.67-1.17); Magnesium 2.2 mg/dL (1.9-2.7); Phosphorus 6.1 mg/dL (2.5-5.0); eGFR CKD-EPI 29.5 (>60)
[2023-01-28] MEDS ORDERED: Dexamethasone IV 4 MG/ML VIAL 1 ml VIAL IV SLOW PU SCH (09:00)
[2023-01-28] MEDS ORDERED: Hydrocortisone INJ 100 MG/2ML 2 ML VIAL IV SCH (09:00)
[2023-01-28] MEDS ORDERED: DOBUTAMINE DRIP IV SCH (09:05)
[2023-01-28] MEDS ORDERED: LORazepam 2 mg VIAL 1 ml IV PUSH PRN (10:17)
[2023-01-28] MEDS: Remdesivir 100 mg Vial 100 MG in NS 0.9% 250 ml 230 ML IV SCH (10:55)
[2023-01-28] MEDS ORDERED: Warfarin - No Order Today **NOTE FOLLOW UP ONE (17:00)
[2023-01-29] MEDS ORDERED: Vancomycin 1000 MG in NS 0.9% 250 ML IVPB SCH (06:00)
[2023-01-31] MEDS ORDERED: Vancomycin Trough Check NOTE FOLLOW UP ONE (05:30)
== END 2023-01-28 11:16 | disposition expired | DRG 177 ==
LOC: ED 20:11 → SUATTDRO 01-24 00:53 → EDHOLD 01-24 00:53 → MEDTELE 01-25 03:03 → ICU 01-28 01:39
PROVIDERS: ADMIT Internal Medicine; ATTEND Hospitalist